=== PATIENT | male | born 1995 | race African-American/Black ===

== ENCOUNTER 2017-07-19 09:55 | Emergency (ER) | END 2017-07-19 12:30 | disposition home or self-care (01) ==

== ENCOUNTER 2017-09-23 12:36 | Emergency (ER) | END 2017-09-23 17:00 | disposition home or self-care (01) ==

== ENCOUNTER 2017-09-30 15:22 | Emergency (ER) | END 2017-09-30 18:02 | disposition home or self-care (01) ==

== ENCOUNTER 2018-07-10 03:30 | Inpatient (IN) | payer BC ==
[~2018-07-10] VITALS: Ht 170.2 cm; Wt 90.0 kg
[~2018-07-10 03:30] MED LIST: BACL10TA PO; HYDR-4011 PO; IBUP-1542 PO; IBUP-1561 PO; NAPR-985 PO
[2018-07-10] MEDS ORDERED: ONDANSETRON 4 MG INJ IV STA (03:43)
[2018-07-10] MEDS ORDERED: LORAZEPAM 2 MG INJ IV STA (03:43)
[2018-07-10] MEDS ORDERED: SOD CHLORIDE 0.9% 500 ML IV STA (03:43)
--- NOTE | 2018-07-10 05:08 | ERD ---
ER Documentation Chief Complaint Chief Complaint states withdrawing from klonopin, c/o shakes, dizziness HPI This is a 23-year-old male who says he has a shakes and dizziness tremulousness and generalized malaise as he is withdrawing from Klonopin. He said his last Klonopin was 2 days ago and is increasingly shaky. He denies any fevers nausea vomiting or chills. Denies any young hallucinations. Denies any other current complaints. ROS All systems reviewed and are negative except as per history of present illness. Medications Home Meds Active Scripts Naproxen* (Naprosyn*) 500 Mg Tablet, 500 MG PO BID PRN for PAIN AND/OR INFLAMMATION, #20 TAB Prov:NIKITA TENORIO PA-C 09/30/17 Ibuprofen* (Motrin*) 600 Mg Tab, 600 MG PO Q6H PRN for PAIN AND OR ELEVATED TEMP, #30 TAB Prov:OHDA BEAULIEU PA-C 09/23/17 Ibuprofen* (Motrin*) 400 Mg Tab, 400 MG PO Q8, #15 TAB Prov:BUZZ HOWARD MD 07/19/17 Baclofen* (Baclofen*) 10 Mg Tablet, 10 MG PO Q8 for 3 Days, #10 TAB Prov:BUZZ HOWARD MD 07/19/17 Hydrocodone/Acetaminophen ([place] 5-325 Tablet) 1 Each Tablet, 1 EACH PO TID for 3 Days, #10 TAB Prov:BUZZ HOWARD MD 07/19/17 Allergies Allergies: Coded Allergies: No Known Allergy (Unverified , 09/23/17) PMhx/Soc History of Surgery: No Anesthesia Reaction: No Hx Neurological Disorder: No Hx Respiratory Disorders: No Hx Cardiac Disorders: No Hx Psychiatric Problems: No Hx Miscellaneous Medical Probl: Yes (DM, HTN, ANXIETY) Hx Alcohol Use: No Hx Substance Use: No Hx Tobacco Use: No Smoking Status: Never smoker Physical Exam Vitals Vital Signs Date Temp Pulse Resp B/P (MAP) Pulse Ox O2 O2 Flow FiO2 Time Delivery Rate 07/10/18 98.1 67 18 126/80 100 Room Air 04:10 (95) 07/10/18 98.6 94 18 150/79 98 03:51 (102) Physical Exam Const: No acute distress Head: Atraumatic Eyes: Normal Conjunctiva ENT: Normal External Ears, Nose and Mouth. Neck: Full range of motion. No meningismus. Resp: Clear to auscultation bilaterally Cardio: Regular rate and rhythm, no murmurs Abd: Soft, non tender, non distended. Normal bowel sounds Skin: No petechiae or rashes Back: No midline or flank tenderness Ext: No cyanosis, or edema Neur: Awake and alert Psych: Normal Mood and Affect Result Diagram: 07/10/18 0416 07/10/18 0416 Results 24 hrs Laboratory Tests Test 07/10/18 04:16 White Blood Count 10.2 10^3/ul Red Blood Count 5.66 10^6/ul Hemoglobin 15.5 g/dl Hematocrit 49.1 % Mean Corpuscular Volume 86.7 fl Mean Corpuscular Hemoglobin 27.4 pg Mean Corpuscular Hemoglobin Concent 31.6 g/dl Red Cell Distribution Width 12.2 % Platelet Count 324 10^3/UL Mean Platelet Volume 10.7 fl Immature Granulocytes % 0.400 % Neutrophils % 54.1 % Lymphocytes % 36.4 % Monocytes % 5.8 % Eosinophils % 2.7 % Basophils % 0.6 % Nucleated Red Blood Cells % 0.0 /100WBC Immature Granulocytes # 0.040 10^3/ul Neutrophils # 5.5 10^3/ul Lymphocytes # 3.7 10^3/ul Monocytes # 0.6 10^3/ul Eosinophils # 0.3 10^3/ul Basophils # 0.1 10^3/ul Nucleated Red Blood Cells # 0.0 10^3/ul Urine Color YELLOW Urine Clarity CLEAR Urine pH 6.0 Urine Specific [place] 1.016 Urine Ketones NEGATIVE mg/dL Urine Nitrite NEGATIVE mg/dL Urine Bilirubin NEGATIVE mg/dL Urine Urobilinogen NEGATIVE mg/dL Urine Leukocyte Esterase NEGATIVE Swathi/ul Urine Hemoglobin NEGATIVE mg/dL Urine Glucose NEGATIVE mg/dL Urine Total Protein NEGATIVE mg/dl Sodium Level 142 mmol/L Potassium Level 4.3 mmol/L Chloride Level 102 mmol/L Carbon Dioxide Level 28 mmol/L Anion Gap 12 Blood Urea Nitrogen 12 mg/dl Creatinine 1.12 mg/dl Est Glomerular Filtrat Rate mL/min > 60 mL/min Glucose Level 99 mg/dl Calcium Level 10.1 mg/dl Total Bilirubin 0.2 mg/dl Direct Bilirubin 0.00 mg/dl Indirect Bilirubin 0.2 mg/dl Aspartate Amino Transf (AST/SGOT) 72 IU/L Alanine Aminotransferase (ALT/SGPT) 78 IU/L Alkaline Phosphatase 96 IU/L Total Protein 8.2 g/dl Albumin 4.7 g/dl Globulin 3.50 g/dl Albumin/Globulin Ratio 1.34 Salicylates Level < 1.0 mg/dl Urine Opiates Screen Negative Acetaminophen Level < 10.0 ug/ml Urine Barbiturates Negative Urine Amphetamines Screen Negative Urine Benzodiazepines Screen Negative Urine Cocaine Screen Negative Urine Cannabinoids Negative Ethyl Alcohol Level < 10.0 mg/dl Current Medications Medications Dose Sig/Devang Start Time Status Last (Trade) Ordered Route PRN Stop Time Admin Dose Reason Admin Sodium 500 ml @ Q1H STAT 07/10/18 DC 07/10/18 Chloride 500 mls/hr IV 03:43 03:58 07/10/18 04:42 Lorazepam 1 mg ONCE STAT 07/10/18 DC 07/10/18 (Ativan) IV 03:43 03:59 07/10/18 03:45 Ondansetron 4 mg ONCE STAT 07/10/18 DC 07/10/18 HCl (Zofran IV 03:43 03:59 Inj) 07/10/18 03:45 Procedures/MDM Medical decision making: This is a 22 male with acute benzodiazepine withdrawal. Is been treated here with Ativan with moderate response. Given the severity of his withdrawal symptoms, I feel the patient is to be admitted. Patient will be admitted to hospitalist to telemetric setting for further evaluation and management. Departure Diagnosis: Primary Impression: Drug withdrawal Substance type: sedative, hypnotic or anxiolytic Qualified Codes: F13.239 - Sedative, hypnotic or anxiolytic dependence with withdrawal, unspecified Condition: Serious NIKITA RUSHLyndon Jul 10, 2018 05:08
--- NOTE | 2018-07-10 06:46 | HP ---
Date/Time of Note Date/Time of Note DATE: 07/10/18 TIME: 06:44 Assessment/Plan VTE Prophylaxis Pharmacological prophylaxis: heparin Lines/Catheters IV Catheter Type (from Nrs): Saline Lock Assessment/Plan Assessment/Plan 22-year-old male who has been on Klonopin for 2 years, stopped 2 weeks ago here with anxiety, tremor, most likely secondary to residual withdrawal symptoms PLAN -will provide antianxiety medication -IV fluid Result Diagram: 07/10/18 0416 07/10/18 0416 Results 24hrs Laboratory Tests Test 07/10/18 04:16 White Blood Count 10.2 Red Blood Count 5.66 Hemoglobin 15.5 Hematocrit 49.1 Mean Corpuscular Volume 86.7 Mean Corpuscular Hemoglobin 27.4 L Mean Corpuscular Hemoglobin Concent 31.6 L Red Cell Distribution Width 12.2 Platelet Count 324 Mean Platelet Volume 10.7 H Immature Granulocytes % 0.400 Neutrophils % 54.1 Lymphocytes % 36.4 Monocytes % 5.8 Eosinophils % 2.7 Basophils % 0.6 Nucleated Red Blood Cells % 0.0 Immature Granulocytes # 0.040 H Neutrophils # 5.5 Lymphocytes # 3.7 H Monocytes # 0.6 Eosinophils # 0.3 Basophils # 0.1 Nucleated Red Blood Cells # 0.0 Urine Color YELLOW Urine Clarity CLEAR Urine pH 6.0 Urine Specific [place] 1.016 Urine Ketones NEGATIVE Urine Nitrite NEGATIVE Urine Bilirubin NEGATIVE Urine Urobilinogen NEGATIVE Urine Leukocyte Esterase NEGATIVE Urine Hemoglobin NEGATIVE Urine Glucose NEGATIVE Urine Total Protein NEGATIVE Sodium Level 142 Potassium Level 4.3 Chloride Level 102 Carbon Dioxide Level 28 Anion Gap 12 Blood Urea Nitrogen 12 Creatinine 1.12 Est Glomerular Filtrat Rate mL/min > 60 Glucose Level 99 Calcium Level 10.1 Total Bilirubin 0.2 Direct Bilirubin 0.00 Indirect Bilirubin 0.2 Aspartate Amino Transf (AST/SGOT) 72 H Alanine Aminotransferase (ALT/SGPT) 78 H Alkaline Phosphatase 96 Total Protein 8.2 H Albumin 4.7 Globulin 3.50 H Albumin/Globulin Ratio 1.34 Salicylates Level < 1.0 L Urine Opiates Screen Negative Acetaminophen Level < 10.0 L Urine Barbiturates Negative Urine Amphetamines Screen Negative Urine Benzodiazepines Screen Negative Urine Cocaine Screen Negative Urine Cannabinoids Negative Ethyl Alcohol Level < 10.0 H HPI/ROS Admit Date/Time Admit Date/Time Hx of Present Illness This is a 22-year-old male with no significant past medical history who presents the ER complaining of anxiety, tremors, nausea/vomiting. He said he has been on Klonopin for 2 years and just stopped taking them 2 weeks ago. Patient overall appears stable and I noticed no acute distress. When he presents the ER, vitals were stable. Basic labs within acceptable range, except AST and ALT of 72 and 78 respectively. PMH/Family/Social Past Medical History Past Surgical History Past Surgical Hx: other (see hpi) Family History Significant Family History: no pertinent family hx Social History Alcohol Use: other Smoking Status: Unknown if ever smoked Drug Use: other Exam Constitutional: other (no acute distress) Eyes: PERRL ENMT: nl external ears & nose Neck: supple Respiratory: normal air movement Cardiovascular: nl pulses Gastrointestinal: soft Extremities: normal pulses Coded Allergies: No Known Allergy (Unverified , 07/10/18) Social History Smoking Status: Never smoker Exam/Review of Systems Vital Signs Vitals Vital Signs Date Temp Pulse Resp B/P (MAP) Pulse Ox O2 O2 Flow FiO2 Time Delivery Rate 07/10/18 98.1 67 18 126/80 100 Room Air 04:10 (95) NIKITA HENDRICKS MD Jul 10, 2018 06:46
[2018-07-10] MEDS ORDERED: LORAZEPAM 0.5 MG TAB PO PRN (07:00)
[2018-07-10] MEDS ORDERED: NACL 0.9% 3 ML SYG IV SCH (07:00)
[2018-07-10] MEDS ORDERED: ALBUTEROL/IPRATROPIUM (NEB) 3 ML AMP HHN PRN (07:00)
[2018-07-10] MEDS ORDERED: ACETAMINOPHEN 325 MG TAB PO PRN (07:00)
[2018-07-10] MEDS ORDERED: ONDANSETRON 4 MG INJ IV PRN (07:00)
[2018-07-10] MEDS: SOD CHLORIDE 0.9% 1,000 ML IV SCH ×2 (07:12→08:51)
[2018-07-10 08:15] VITALS: Ht 170.2 cm; Wt 90.0 kg
[2018-07-10 08:30] VITALS: BP 120/69; RESP 18
[2018-07-10 08:34] VITALS: PULSE 54
[2018-07-10] MEDS ORDERED: HEPARIN 5,000 UNIT/1 ML VIAL SC SCH (09:00)
[2018-07-10] MEDS ORDERED: PROP10TA6 PO (10:33)
--- NOTE | 2018-07-10 10:33 | PDOCDIS ---
Discharge Instructions CONDITION [id number] Patient Condition: [id number] Stable HOME CARE INSTRUCTIONS: [id number] Diet Instructions: [id number] Regular ACTIVITY: [id number] Activity Restrictions: [id number] Do not Drive FOLLOW UP/APPOINTMENTS Follow-up Plan appt primary & behavioral health 1weLIA Nuñez MD Jul 10, 2018 10:33
[2018-07-10] MEDS ORDERED: PROPRANOLOL 10 MG TAB PO SCH (11:00)
[2018-07-10 11:50] VITALS: BP 121/74; PULSE 56; RESP 19
--- NOTE | 2018-07-10 12:03 | DS ---
Date/Time of Note Date/Time of Note DATE: 07/10/18 TIME: 12:00 Discharge Summary Admission/Discharge Info Admit Date/Time Jul 10, 2018 at 05:02 Discharge Date/Time Patient Condition: Stable Consults Refused behavioral health Procedures Labs: Urine tox screen unremarkable. Electrolytes CMP creatinine unremarkable Hx of Present Illness 22-year-old male who has been on Klonopin for 2 years, stopped 2 weeks ago here with anxiety, tremor, most likely secondary to residual withdrawal symptoms Hospital Course Hospitalist coverage/hospital course Admitted with symptoms of anxiety feeling tremors and having believe chronic social anxiety issues. He stopped taking medicines 2 weeks ago from unknown reason. Patient was seen by social service at this point. We have requested him to see behavioral health but he wishes to go home and follow-up with his regular behavioral health specialist. There is no ideation. patient is stable and fit for discharge. In the interim I will start him on a beta- hitesh/propranolol. Nonadherence to medicationstherapy Chronic social anxiety disorder vs generalized anxiety disorder vs benzo diazepam dependence disorder Home Meds Active Scripts Propranolol Hcl* (Propranolol Hcl*) 10 Mg Tablet, 10 MG PO BID for 14 Days, #30 TAB Prov:LIA FREY MD 07/10/18 Discontinued Scripts Naproxen* (Naprosyn*) 500 Mg Tablet, 500 MG PO BID PRN for PAIN AND/OR INFLAMMATION, #20 TAB Prov:NIKITA TENORIO PA-C 09/30/17 Ibuprofen* (Motrin*) 600 Mg Tab, 600 MG PO Q6H PRN for PAIN AND OR ELEVATED TEMP, #30 TAB Prov:HODA BEAULIEU PA-C 09/23/17 Ibuprofen* (Motrin*) 400 Mg Tab, 400 MG PO Q8, #15 TAB Prov:BUZZ HOWARD MD 07/19/17 Baclofen* (Baclofen*) 10 Mg Tablet, 10 MG PO Q8 for 3 Days, #10 TAB Prov:BUZZ HOWARD MD 07/19/17 Hydrocodone/Acetaminophen ([place] 5-325 Tablet) 1 Each Tablet, 1 EACH PO TID for 3 Days, #10 TAB Prov:BUZZ HOWARD MD 07/19/17 Follow-up Plan appt primary & behavioral health 1week Primary Care Provider Not On Staff Doctor Time spent on discharge: > 30 minutes Pending Labs Laboratory Tests Test 07/10/18 04:16 White Blood Count 10.2 10^3/ul (4.8-10.8) Red Blood Count 5.66 10^6/ul (4.70-6.10) Hemoglobin 15.5 g/dl (14.0-18.0) Hematocrit 49.1 % (42.0-52.0) Mean Corpuscular Volume 86.7 fl (82.0-101.0) Mean Corpuscular Hemoglobin 27.4 pg (29.0-33.0) Mean Corpuscular Hemoglobin Concent 31.6 g/dl (32.0-37.0) Red Cell Distribution Width 12.2 % (11.5-14.5) Platelet Count 324 10^3/UL (140-415) Mean Platelet Volume 10.7 fl (7.4-10.4) Immature Granulocytes % 0.400 % (0.001-0.429) Neutrophils % 54.1 % (39.0-77.0) Lymphocytes % 36.4 % (15.0-51.0) Monocytes % 5.8 % (0.0-11.0) Eosinophils % 2.7 % (0.0-7.0) Basophils % 0.6 % (0.0-2.0) Nucleated Red Blood Cells % 0.0 /100WBC (0.0-0.0) Immature Granulocytes # 0.040 10^3/ul (0.0-0.031) Neutrophils # 5.5 10^3/ul (1.6-7.5) Lymphocytes # 3.7 10^3/ul (0.8-2.9) Monocytes # 0.6 10^3/ul (0.3-0.9) Eosinophils # 0.3 10^3/ul (0.0-0.5) Basophils # 0.1 10^3/ul (0.0-0.1) Nucleated Red Blood Cells # 0.0 10^3/ul (0.0-0.0) Urine Color YELLOW (YELLOW) Urine Clarity CLEAR (CLEAR) Urine pH 6.0 (5.0-9.0) Urine Specific [place] 1.016 (1.003-1.030) Urine Ketones NEGATIVE mg/dL (NEGATIVE) Urine Nitrite NEGATIVE mg/dL (NEGATIVE) Urine Bilirubin NEGATIVE mg/dL (NEGATIVE) Urine Urobilinogen NEGATIVE mg/dL (NEGATIVE) Urine Leukocyte Esterase NEGATIVE Swathi/ul Urine Hemoglobin NEGATIVE mg/dL (NEGATIVE) Urine Glucose NEGATIVE mg/dL (NEGATIVE) Urine Total Protein NEGATIVE mg/dl (NEGATIVE) Sodium Level 142 mmol/L (135-144) Potassium Level 4.3 mmol/L (3.5-5.1) Chloride Level 102 mmol/L (97-110) Carbon Dioxide Level 28 mmol/L (21-31) Anion Gap 12 (5-13) Blood Urea Nitrogen 12 mg/dl (7-20) Creatinine 1.12 mg/dl (0.61-1.24) Est Glomerular Filtrat Rate mL/min > 60 mL/min (>60) Glucose Level 99 mg/dl (70-220) Calcium Level 10.1 mg/dl (8.4-10.2) Total Bilirubin 0.2 mg/dl (0.2-1.3) Direct Bilirubin 0.00 mg/dl (0.00-0.20) Indirect Bilirubin 0.2 mg/dl (0-1.1) Aspartate Amino Transf (AST/SGOT) 72 IU/L (15-46) Alanine Aminotransferase (ALT/SGPT) 78 IU/L (13-69) Alkaline Phosphatase 96 IU/L (42-121) Total Protein 8.2 g/dl (6.1-8.1) Albumin 4.7 g/dl (3.3-4.9) Globulin 3.50 g/dl (1.3-3.2) Albumin/Globulin Ratio 1.34 Salicylates Level < 1.0 mg/dl (5.0-30.0) Urine Opiates Screen Negative (NEGATIVE) Acetaminophen Level < 10.0 ug/ml (10.0-30.0) Urine Barbiturates Negative (NEGATIVE) Urine Amphetamines Screen Negative (NEGATIVE) Urine Benzodiazepines Screen Negative (NEGATIVE) Urine Cocaine Screen Negative (NEGATIVE) Urine Cannabinoids Negative (NEGATIVE) Ethyl Alcohol Level < 10.0 mg/dl (0-0) LIA FREY MD Jul 10, 2018 12:03
== END 2018-07-10 12:35 | disposition home or self-care (01) | DRG 897 ==
LOC: E/R 03:30 → 6WM 05:02
PROVIDERS: ADMIT Internal Medicine; ATTEND Internal Medicine
DX: F13.239 Sedative, hypnotic or anxiolytic dependence with withdrawal, unspecified (principal); G25.1 Drug-induced tremor; T42.4X5A Adverse effect of benzodiazepines, initial encounter; Y92.89 Other specified places as the place of occurrence of the external cause; F41.9 Anxiety disorder, unspecified
CPT/HCPCS: 36415; 80053; 80307; 81003; 85025; 93005; 96374; 96375; J1644; J2060; J2405; J7030; J7040